=== PATIENT | female | born 1985 | race Caucasian/White ===

== ENCOUNTER 2022-12-03 16:37 | Emergency (ER) | payer OTHER ==
[2022-12-03 17:00] VITALS: BP 119/55; PULSE 92; RESP 16; TEMP 98.4; BMI 27.4
[2022-12-03] MEDS ORDERED: IBUPROFEN 400 MG TABLET (FP) PO ONE ×2 (17:56→18:16)
== END 2022-12-03 19:36 | disposition home or self-care (01) ==
LOC: JER 16:37 → JERFT 16:37
PROC: 2W3EX1Z Immobilization of Right Hand using Splint (ICD-10-PCS; principal; 2022-12-03)
DX: M79.644 Pain in right finger(s) (principal); R22.31 Localized swelling, mass and lump, right upper limb; S62.324A Displaced fracture of shaft of fourth metacarpal bone, right hand, initial encounter for closed fracture; X50.9XXA Other and unspecified overexertion or strenuous movements or postures, initial encounter; Y93.89 Activity, other specified; Y99.1 Military activity
CPT/HCPCS: 73130-TC-RT-FY; 73140-TC-RT-FY; 99283-25

== ENCOUNTER 2023-03-02 21:58 | Emergency (ER) | payer OTHER ==
[2023-03-02 22:03] VITALS: BP 104/68; PULSE 108; RESP 18; TEMP 97; BMI 27.4
[2023-03-02] MEDS ORDERED: IBUPROFEN 400 MG TABLET (FP) PO ONE ×2 (23:18→23:51)
== END 2023-03-03 02:40 | disposition home or self-care (01) ==
LOC: JER 21:58
DX: S99.911A Unspecified injury of right ankle, initial encounter (principal); X50.9XXA Other and unspecified overexertion or strenuous movements or postures, initial encounter
CPT/HCPCS: 73590-TC-RT-FY; 73610-TC-RT-FY; 73630-TC-RT-FY; 99283-25